=== PATIENT | female | born 1945 | race African-American/Black ===

== ENCOUNTER 2017-12-07 05:46 | Inpatient (IN) | payer MEDICARE, MEDICAID ==
--- NOTE | 2017-12-06 12:30 | Pre-op HX & Phy Repo 2 SIG ---
DATE OF ADMISSION: 12/07/2017 DATE OF SURGERY: 12/07/2017. PREOPERATIVE DIAGNOSIS: Retained lens material, left eye. BRIEF NOTE: This is the first retinal surgery admission for Ms. Xiao, who is a very nice 71-year-old lady with a long history of diabetic retinopathy and glaucoma. She underwent cataract surgery on November 29, complicated by loose zonules, which resulted in retention of lens fragments on that side. She was left aphakic. She is admitted for vitrectomy with removal of lens fragments as a primary procedure with potentially delayed insertion of a lens implant. PAST OCULAR HISTORY: Remarkable for proliferative diabetic retinopathy. She has undergone prior laser treatment and injections. She had significant glaucoma on the right eye in the past and had tube-shunt surgery there. There was a partial dislocation of the lens implant on the right, but not surgically significant at this point. MEDICAL HISTORY: Remarkable for arthritis, diabetes, hypertension, and kidney disease. SOCIAL HISTORY: She is a nonsmoker. She does not drink. ALLERGIES: She has no known allergies. CURRENT MEDICATIONS: Include Timolol twice daily, Lumigan twice daily as well as TobraDex and dorzolamide. She is systemically on gabapentin and Renvela. PHYSICAL EXAMINATION: Best vision at the time of admission was 20/300 in the right eye, counting fingers at 6 feet in the left with pressures of 19 and 20. The anterior segment on the right showed a tube-shunt at the 10 o'clock position. The intra-ocular lens was dislocated slightly inferiorly and nasally, but the optical axis was covered. The left anterior segment showed a cataract wound temporally. There was lens material, which appeared to be deep cortex in the inferior angle. Capsular remnants were also present. No implant was in place. Funduscopic examination of the right eye showed a 0.45 cup. There was old proliferative diabetic retinopathy with a mild vitreous hemorrhage down below. The left fundus showed active proliferative retinopathy with some laser. Two small fragments of the lens material were seen posteriorly. The retina was all attached. General physical examination will be done by Dr. Jean Baptiste. ASSESSMENT: Retained lens material, left eye with diabetic retinopathy. PLAN: The plan is to perform a pars plana vitrectomy with removal and possible fragmentation of retained lens material. Endolaser will be done as well as a planned Avastin injection. The risks and benefits of surgery gone over the patient with potential infection, hemorrhage, worsening of the glaucoma, and remote possibility of loss of the eye. She was advised that no lens will be inserted at this procedure. The patient understands and consents to the surgery, which will be performed on tomorrow morning. Ronni Felipe M.D. DR: TAMARA JOB#: [id number] CC:
[~2017-12-07] VITALS: Ht 162.6 cm; Wt 70.8 kg
[2017-12-07] VITALS (31 sets, daily range): BP systolic 109–145; BP diastolic 43–72
[~2017-12-07 05:46] MED LIST: ASPIRIN-LOW81 MG ORAL; BENICAR40 MG ORAL; CATAPRES0.3 MG ORAL; DOXAZOSIN MESYLA4 MG ORAL; FELODIPINE ER10 MG PO; NEPHROVITE1 TAB ORAL; RENVELA800 MG ORAL; VIT.D3 ORAL; VITAMIN D1000 UNI1 ORAL
[2017-12-07] MEDS ORDERED: Pred Forte 1% Opth Susp 1ml LEFT EYE ONE (06:00)
[2017-12-07] MEDS ORDERED: Avastin 10mg Inj IVITRE ONE (06:00)
[2017-12-07] MEDS ORDERED: EPINEPHrine 1mg/1ml Amp ONE (06:23)
[2017-12-07] MEDS ORDERED: Pred Forte 1% Opth Susp 1ml ONE (06:24)
[2017-12-07] MEDS ORDERED: Kenalog-10 5ml Inj ONE (06:24)
[2017-12-07] MEDS ORDERED: Kenalog-40 1ml Vial ONE (06:24)
[2017-12-07] MEDS ORDERED: Lidocaine 2% MPF 5ml Vial INJ ONE ×2 (06:24→06:26)
[2017-12-07] MEDS ORDERED: Bupivacaine 0.75% 30ml vial INJ ONE (06:25)
[2017-12-07] MEDS ORDERED: BSS 500ml btl ONE (06:25)
[2017-12-07] MEDS ORDERED: Povidone-Iodine 5% opth solution ONE (06:25)
[2017-12-07] MEDS ORDERED: BSS 15ml BTL ONE ×2 (06:25→08:57)
[2017-12-07] MEDS ORDERED: Dexamethasone 4mg/ml vial ONE (06:25)
[2017-12-07] MEDS ORDERED: Tetracaine 0.5% Opth 4ml Soln ONE (06:25)
[2017-12-07] MEDS ORDERED: Triamcinolone 40mg/ml PF Vial ONE (06:26)
[2017-12-07] MEDS: Cyclopentolate 1% Opth Sol 2ml LEFT EYE SCH ×3 (06:34→06:55)
[2017-12-07] MEDS: Flurbiprofen 0.03% Opth Sol 2.5ml LEFT EYE SCH ×3 (06:34→06:55)
[2017-12-07] MEDS: Phenylephrine 2.5% Op 2ml Soln LEFT EYE SCH ×3 (06:34→06:55)
[2017-12-07] MEDS: Vigamox Opth Soln 3ml LEFT EYE SCH ×3 (06:35→06:55)
[2017-12-07] MEDS ORDERED: Maxitrol Opth Oint 3.5gm ONE (06:43)
[2017-12-07] MEDS ORDERED: Sodium Hyaluronate 10 mg/ml 0.85ml ONE (06:44)
[2017-12-07] MEDS ORDERED: Propofol 200mg/20ml IV ONE (07:00)
[2017-12-07] MEDS ORDERED: fentaNYL 100 mcg/2 mL IV ONE (07:00)
[2017-12-07] MEDS ORDERED: Sterile Water Irrig 1000ml IRRIG ONE (07:00)
[2017-12-07] MEDS ORDERED: NS Irrig 1000ml ONE (07:00)
[2017-12-07] MEDS ORDERED: ePHEDrine 50mg/ml Inj ONE (07:00)
[2017-12-07] MEDS ORDERED: Lidocaine 1% MPF 10mg/ml 5ml ONE (07:00)
[2017-12-07] MEDS ORDERED: LR 1000ml ONE ×2 (07:00)
[2017-12-07] MEDS ORDERED: Esmolol 100mg/10ml Inj ONE (07:00)
[2017-12-07 07:08] LABS: ANION GAP 10 mmol/L (5-15); BASOPHILS % (AUTO) 1.2 % (0.0-2.0); BLOOD UREA NITROGEN 29 mg/dL (7-18); CALCIUM 9.2 MG/DL (8.5-10.1); CARBON DIOXIDE 28 MMOL/L (21-32); CHLORIDE 104 MMOL/L (98-107); CREATININE 6.3 MG/DL (0.55-1.30); HEMATOCRIT 39.7 % (37.0-47.0); HEMOGLOBIN 13.2 G/DL (12.0-16.0); LYMPHOCYTES % (AUTO) 35.5 % (20.0-45.0); MEAN CORPUSCULAR VOLUME 98 FL (80-99); MONOCYTES % (AUTO) 14.2 % (1.0-10.0); PLATELET COUNT 215 K/UL (150-450); POTASSIUM 4.3 MMOL/L (3.5-5.1); RED BLOOD COUNT 4.04 M/UL (4.20-5.40); RED CELL DISTRIBUTION WIDTH 12.5 % (11.6-14.8); SODIUM 142 MMOL/L (136-145); WHITE BLOOD COUNT 4.7 K/UL (4.8-10.8)
--- NOTE | 2017-12-07 07:19 | Anethesia Preoperative Eval ---
Anesthesia Pre-op PMH/ROS General Date of Evaluation: December 07, 2017 Time of Evaluation: 07:18 Anesthesiologist: lauryn ASA Score: ASA 3 Mallampati Score Class I : Soft palate, uvula, fauces, pillars visible Class II: Soft palate, uvula, fauces visible Class III: Soft palate, base of uvula visible Class IV: Only hard plate visible Mallampati Classification: Class II Surgeon: aguilar Diagnosis: retained lens material Surgical Procedure: vitrectomy Anesthesia History: none Family History: no anesthesia problems Allergies: Coded Allergies: No Known Allergies (Unverified , 03/07/13) Medications: see eMAR Past Medical History Cardiovascular: Reports: HTN, arrhythmia - hx; Denies: CAD, [place], valve dz, other Pulmonary: Denies: asthma, COPD, YUKO, other Gastrointestinal/Genitourinary: Reports: CRI, ESRD - dialysis yesterday - lbs wnl; Denies: GERD, other Neurologic/Psychiatric: Denies: dementia, CVA, depression/anxiety, TIA, other Endocrine: Reports: DM; Denies: hypothyroidism, steroids, other HEENT: Reports: cataract (L), cataract (R) Hematology/Immune: Reports: anemia Musculoskeletal/Integumentary: Denies: OA, RA, DJD, DDD, edema, other PSxH Narrative: cataract surgery in november 2017- retained lens material Anesthesia Pre-op Phys. Exam Physician Exam Last Vital Signs Date Time Temp Pulse Resp B/P (MAP) Pulse Ox O2 Delivery O2 Flow Rate FiO2 12/07/17 06:42 98.1 59 18 131/62 98 Room Air 98.1 Constitutional: NAD Neurologic: CN 2-12 intact Cardiovascular: RRR Respiratory: CTA Gastrointestinal: S/NT/ND Airway Exam Mallampati Classification 2 Mallampati Score: Class II ROM: limited Dentures: upper; no lower Anesthesia Pre-op A/P Labs Hematology Test 12/07/17 05:30 White Blood Count 4.7 K/UL (4.8-10.8) L Red Blood Count 4.04 M/UL (4.20-5.40) L Hemoglobin 13.2 G/DL (12.0-16.0) Hematocrit 39.7 % (37.0-47.0) Mean Corpuscular Volume 98 FL (80-99) Mean Corpuscular Hemoglobin 32.6 PG (27.0-31.0) H Mean Corpuscular Hemoglobin Concent 33.2 G/DL (32.0-36.0) Red Cell Distribution Width 12.5 % (11.6-14.8) Platelet Count 215 K/UL (150-450) Mean Platelet Volume 6.2 FL (6.5-10.1) L Neutrophils (%) (Auto) 46.0 % (45.0-75.0) Lymphocytes (%) (Auto) 35.5 % (20.0-45.0) Monocytes (%) (Auto) 14.2 % (1.0-10.0) H Eosinophils (%) (Auto) 3.0 % (0.0-3.0) Basophils (%) (Auto) 1.2 % (0.0-2.0) Chemistry Test 12/07/17 05:30 Sodium Level Pending Potassium Level Pending Chloride Level Pending Carbon Dioxide Level Pending Blood Urea Nitrogen Pending Creatinine Pending Estimat Glomerular Filtration Rate Pending Glucose Level Pending Calcium Level Pending Studies Pre-op Studies: EKG - bbb Risk Assessment & Plan Assessment: denies recent change in health; denies CP Plan: mac/General Status Change Before Surgery: No Pre-Antibiotics Drug: none Brooklynn Lim CRNA December 07, 2017 07:19
--- NOTE | 2017-12-07 07:25 | Pre-Procedure Note/Attestation ---
Pre-Procedure Note/Attestation Complete Prior to Procedure Planned Procedure: left Procedure Narrative: PPV, removal of retained lens material, endolaser, Avastin injection Left eye Indications for Procedure Pre-Operative Diagnosis: Retained lens material Left eye Attestation I attest that I discussed the nature of the procedure; its benefits; risks and complications; and alternatives (and the risks and benefits of such alternatives ), prior to the procedure, with the patient (or the patient's legal termite control representative). I attest that, if there was a reasonable possibility of needing a blood transfusion, the patient (or the patient's legal termite control representative) was given the [facility] standardized written summary, pursuant to the [place] Blood Safety Act ([place] Health and Safety Code # 1645, as amended). I attest that I re-evaluated the patient just prior to the surgery and that there has been no change in the patient's H&P, except as documented below: TRINY PRATER December 07, 2017 07:25
[2017-12-07] MEDS ORDERED: Pilocarpine 4% Opth 15ml Soln ONE (08:11)
[2017-12-07] MEDS ORDERED: Carbachol 0.01% Op Soln 1.5ml vial ONE (08:12)
[2017-12-07 10:20] LABS: ALANINE AMINOTRANSFERASE 19 U/L (12-78); ALBUMIN 3.3 G/DL (3.4-5.0); ALBUMIN/GLOBULIN RATIO 0.8 (1.0-2.7); ALKALINE PHOSPHATASE 103 U/L (46-116); ANION GAP 11 mmol/L (5-15); ASPARTATE AMINO TRANSFERASE 24 U/L (15-37); BILIRUBIN,TOTAL 0.5 MG/DL (0.2-1.0); BLOOD UREA NITROGEN 31 mg/dL (7-18); CALCIUM 9.4 MG/DL (8.5-10.1); CARBON DIOXIDE 27 MMOL/L (21-32); CHLORIDE 105 MMOL/L (98-107); CKMB 1.3 NG/ML (0.0-3.6); CREATININE 6.5 MG/DL (0.55-1.30); POTASSIUM 4.6 MMOL/L (3.5-5.1); SODIUM 143 MMOL/L (136-145)
--- NOTE | 2017-12-07 13:48 | Cardiac Electrophysiology PN ---
Subjective Subjective Pt seen in recovery. Consult dictated. Elevated Troponin. Wide complex tachy.Abdominal Pacer. [id number] Objective Last 24 Hour Vital Signs Date Time Temp Pulse Resp B/P (MAP) Pulse Ox O2 Delivery O2 Flow Rate FiO2 12/07/17 13:30 65 18 129/66 100 Nasal Cannula 3.0 12/07/17 13:15 62 16 115/62 100 Nasal Cannula 3.0 12/07/17 13:00 60 15 121/55 100 Nasal Cannula 3.0 12/07/17 12:45 61 14 117/54 100 Nasal Cannula 3.0 12/07/17 12:30 62 16 118/56 100 Nasal Cannula 3.0 12/07/17 12:15 61 15 119/56 100 Nasal Cannula 3.0 12/07/17 12:00 63 16 128/56 100 Nasal Cannula 3.0 12/07/17 11:45 63 14 124/63 100 Nasal Cannula 3.0 12/07/17 11:30 62 15 114/61 100 Nasal Cannula 3.0 12/07/17 11:15 61 17 123/55 100 Nasal Cannula 3.0 12/07/17 11:00 60 16 129/60 100 Nasal Cannula 3.0 12/07/17 10:45 60 15 127/63 100 Nasal Cannula 3.0 12/07/17 10:30 60 18 124/57 100 Nasal Cannula 3.0 12/07/17 10:15 65 15 123/67 100 Nasal Cannula 3.0 12/07/17 10:00 65 13 135/62 100 Nasal Cannula 3.0 12/07/17 09:45 64 15 144/70 100 Nasal Cannula 3.0 12/07/17 09:30 75 18 125/69 100 Nasal Cannula 3.0 12/07/17 09:20 66 15 145/72 100 Nasal Cannula 3.0 12/07/17 09:10 65 13 134/65 100 Nasal Cannula 3.0 12/07/17 09:05 71 14 131/62 100 Nasal Cannula 3.0 12/07/17 09:00 67 15 135/63 100 Simple Mask 6.0 12/07/17 08:54 98.0 63 13 131/62 100 Simple Mask 6.0 98.0 12/07/17 06:42 98.1 59 18 131/62 98 Room Air 98.1 Laboratory Tests Test 12/07/17 05:30 12/07/17 09:35 White Blood Count 4.7 K/UL (4.8-10.8) L Red Blood Count 4.04 M/UL (4.20-5.40) L Hemoglobin 13.2 G/DL (12.0-16.0) Hematocrit 39.7 % (37.0-47.0) Mean Corpuscular Volume 98 FL (80-99) Mean Corpuscular Hemoglobin 32.6 PG (27.0-31.0) H Mean Corpuscular Hemoglobin Concent 33.2 G/DL (32.0-36.0) Red Cell Distribution Width 12.5 % (11.6-14.8) Platelet Count 215 K/UL (150-450) Mean Platelet Volume 6.2 FL (6.5-10.1) L Neutrophils (%) (Auto) 46.0 % (45.0-75.0) Lymphocytes (%) (Auto) 35.5 % (20.0-45.0) Monocytes (%) (Auto) 14.2 % (1.0-10.0) H Eosinophils (%) (Auto) 3.0 % (0.0-3.0) Basophils (%) (Auto) 1.2 % (0.0-2.0) Sodium Level 142 MMOL/L (136-145) 143 MMOL/L (136-145) Potassium Level 4.3 MMOL/L (3.5-5.1) 4.6 MMOL/L (3.5-5.1) Chloride Level 104 MMOL/L (98-107) 105 MMOL/L (98-107) Carbon Dioxide Level 28 MMOL/L (21-32) 27 MMOL/L (21-32) Anion Gap 10 mmol/L (5-15) 11 mmol/L (5-15) Blood Urea Nitrogen 29 mg/dL (7-18) H 31 mg/dL (7-18) H Creatinine 6.3 MG/DL (0.55-1.30) H 6.5 MG/DL (0.55-1.30) H Estimat Glomerular Filtration Rate mL/min (>60) mL/min (>60) Glucose Level 110 MG/DL (74-106) H 103 MG/DL (74-106) Calcium Level 9.2 MG/DL (8.5-10.1) 9.4 MG/DL (8.5-10.1) Magnesium Level 1.9 MG/DL (1.8-2.4) Total Bilirubin 0.5 MG/DL (0.2-1.0) Aspartate Amino Transf (AST/SGOT) 24 U/L (15-37) Alanine Aminotransferase (ALT/SGPT) 19 U/L (12-78) Alkaline Phosphatase 103 U/L (46-116) Creatine Kinase MB 1.3 NG/ML (0.0-3.6) Troponin I 0.148 ng/mL (0.000-0.056) Total Protein 7.5 G/DL (6.4-8.2) Albumin 3.3 G/DL (3.4-5.0) L Globulin 4.2 g/dL Albumin/Globulin Ratio 0.8 (1.0-2.7) L Shree Castro MD December 07, 2017 13:48
--- NOTE | 2017-12-07 14:17 | Diagnostic Imaging Report ---
Indication: Dyspnea Comparison: None A single view chest radiograph was obtained. Findings: Pacemaker wires are noted entering the heart from the IVC. One of the leads terminates in the right atrium the other crosses midline into the right ventricle. There is a stent in the left subclavian vein. Bones are osteopenic. The heart is enlarged. The lungs are clear IMPRESSION: No acute disease.
--- NOTE | 2017-12-07 14:27 | Immediate Post-Op Evaluation ---
Immediate Post-Op Evalulation Immediate Post-Op Evalulation Procedure: left eye vitrectomy; removal of fragments Date of Evaluation: December 07, 2017 Time of Evaluation: 08:56 IV Fluids: 500 Blood Pressure Systolic: 131 Blood Pressure Diastolic: 62 Pulse Rate: 60 Respiratory Rate: 14 O2 Sat by Pulse Oximetry: 100 Temperature (Fahrenheit): 98.1 Pain Score (1-10): 0 Nausea: No Vomiting: No Complications Pt had one bout to PSVT - 100s -110 - intraop for approximately [address] Felipe made aware; agreed to stop procedure and cx case with next episode of dyrrthymias. Towards the end of case, pt had another run of PSVT 110-120,BP 130s /80 SPo 100 on 100% oxygen-intubated under general. Case cx. Pt returned to baseline neurostatus. Labs drawn, 12 lead ECG done and consulted cardiology. Otherwise pt is alert and awake. Patient Status: awake, reacts, patent Hydration Status: adequate Drug: none Brooklynn Lim CRNA December 07, 2017 14:27
--- NOTE | 2017-12-07 14:49 | 48 Hour Post Anesthesia Eval ---
Post Anesthesia Evaluation Procedure: left eye vitrectomy; removal of fragments Date of Evaluation: December 07, 2017 Time of Evaluation: 14:48 Blood Pressure Systolic: 122 0: 66 Pulse Rate: 74 Respiratory Rate: 14 O2 Sat by Pulse Oximetry: 100 Airway: patent Nausea: No Vomiting: No Hydration Status: adequate Cardiopulmonary Status: Dr. Brooks was consulted. Mental Status/LOC: other - pt is admitted for further cardiac workup and abdominal pacemaker interrogation Follow-up Care/Observations: cardiology consult; pacermaker interrogation Post-Anesthesia Complications: none Follow-up care needed: N/A Brooklynn Lim CRNA December 07, 2017 14:49
--- NOTE | 2017-12-07 15:13 | History and Physical ---
History of Present Illness General Date patient seen: December 07, 2017 Reason for Hospitalization: SVT Present Illness HPI Patient is a 71 y/o female with a PMH of HTN, ESRD on HD (MWF), and abdominal pacer ([employer] pacemaker) who presented for elective left eye surgery for retained lens. Patient states that she underwent cataract surgery on November 29, 2017, which was c/b loose zonules. This resulted in retention of lens fragments on that side. She was therefore admitted for vitrectomy with removal of lens fragments as a primary procedure with potentially delayed insertion of a lens implant. While in OR, patient had several beats of supraventricular tachycardia , but case was finished. Patient states that the abdominal pacer was placed due to bradycardia and was in abdomen because she had a stent placed in the LUE due to arterial occlusion. Denies chest pain, sob, n/v, abdominal pain, f/c, d/c. PMH: HTN, ESRD on HD, abdominal pacemaker PSxH: right third phalanx amputation, s/p right AVF, s/p left AVF now closed due to previous infection, s/p left RUE angioplasty with stent due to arterial occlusion Social Hx: Denies tobacco/alcohol/illicit drug use Allergies: Coded Allergies: No Known Allergies (Unverified , 03/07/13) Medication History Scheduled Aspirin (Aspirin EC), 81 MG ORAL DAILY, (Reported) Cholecalciferol (Vitamin D3)* (Vitamin D*), 1,000 UNIT ORAL DAILY, (Reported) Sevelamer Carbonate (Renvela), 800 MG ORAL THREE TIMES A DAY, (Reported) Discontinued Medications Clonidine Hcl* (Catapres*), 0.3 MG ORAL DAILY, (Reported) Discontinued Reason: Pt stopped taking med Doxazosin Mesylate* (Doxazosin Mesylate*), 8 MG ORAL DAILY, (Reported) Discontinued Reason: Pt stopped taking med Felodipine (Felodipine Er), 10 MG PO DAILY, (Reported) Discontinued Reason: Pt stopped taking med Olmesartan Medoxomil (Benicar), 40 MG ORAL DAILY, (Reported) Discontinued Reason: Pt stopped taking med Vitamin B Cmplx/Vit C/Folic AC (Nephro-Reid Tablet), 1 TAB ORAL DAILY, (Reported ) Discontinued Reason: Pt stopped taking med Patient History Healthcare decision maker N Resuscitation status Advanced Directive on File Review of Systems All Other Systems: negative except mentioned in HPI Physical Exam General Appearance: no apparent distress, alert HEENT: normocephalic, atraumatic, other - left eye wrapped Neck: non-tender, normal alignment, supple Respiratory/Chest: chest wall non-tender, lungs clear, normal breath sounds Cardiovascular/Chest: normal peripheral pulses, irregularly irregular Abdomen: normal bowel sounds, non tender, soft, other - abdominal pacemaker present in LUQ Extremities: normal range of motion, non-tender Skin Exam: normal pigmentation, warm/dry, other - right AVF with bruit 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: 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 II-XII grossly normal, no motor/sensory deficits, alert, oriented x 3 Last 24 Hour Vital Signs Date Time Temp Pulse Resp B/P (MAP) Pulse Ox O2 Delivery O2 Flow Rate FiO2 12/07/17 14:58 99.1 65 14 129/58 100 Nasal Cannula 2.0 99.1 12/07/17 14:50 74 14 100 12/07/17 14:45 98.0 60 16 109/43 100 Nasal Cannula 3.0 98.0 12/07/17 14:30 62 15 112/62 100 Nasal Cannula 3.0 12/07/17 14:27 208.6 60 14 100 12/07/17 14:15 63 14 118/58 100 Nasal Cannula 3.0 12/07/17 14:00 61 16 124/64 100 Nasal Cannula 3.0 12/07/17 13:45 62 15 123/62 100 Nasal Cannula 3.0 12/07/17 13:30 65 18 129/66 100 Nasal Cannula 3.0 12/07/17 13:15 62 16 115/62 100 Nasal Cannula 3.0 12/07/17 13:00 60 15 121/55 100 Nasal Cannula 3.0 12/07/17 12:45 61 14 117/54 100 Nasal Cannula 3.0 12/07/17 12:30 62 16 118/56 100 Nasal Cannula 3.0 12/07/17 12:15 61 15 119/56 100 Nasal Cannula 3.0 12/07/17 12:00 63 16 128/56 100 Nasal Cannula 3.0 12/07/17 11:45 63 14 124/63 100 Nasal Cannula 3.0 12/07/17 11:30 62 15 114/61 100 Nasal Cannula 3.0 5/30/18 11:15 61 17 123/55 100 Nasal Cannula 3.0 12/07/17 11:00 60 16 129/60 100 Nasal Cannula 3.0 12/07/17 10:45 60 15 127/63 100 Nasal Cannula 3.0 12/07/17 10:30 60 18 124/57 100 Nasal Cannula 3.0 12/07/17 10:15 65 15 123/67 100 Nasal Cannula 3.0 12/07/17 10:00 65 13 135/62 100 Nasal Cannula 3.0 12/07/17 09:45 64 15 144/70 100 Nasal Cannula 3.0 12/07/17 09:30 75 18 125/69 100 Nasal Cannula 3.0 12/07/17 09:20 66 15 145/72 100 Nasal Cannula 3.0 12/07/17 09:10 65 13 134/65 100 Nasal Cannula 3.0 12/07/17 09:05 71 14 131/62 100 Nasal Cannula 3.0 12/07/17 09:00 67 15 135/63 100 Simple Mask 6.0 12/07/17 08:54 98.0 63 13 131/62 100 Simple Mask 6.0 98.0 12/07/17 06:42 98.1 59 18 131/62 98 Room Air 98.1 Laboratory Tests Test 12/07/17 05:30 12/07/17 09:35 White Blood Count 4.7 K/UL (4.8-10.8) L Red Blood Count 4.04 M/UL (4.20-5.40) L Hemoglobin 13.2 G/DL (12.0-16.0) Hematocrit 39.7 % (37.0-47.0) Mean Corpuscular Volume 98 FL (80-99) Mean Corpuscular Hemoglobin 32.6 PG (27.0-31.0) H Mean Corpuscular Hemoglobin Concent 33.2 G/DL (32.0-36.0) Red Cell Distribution Width 12.5 % (11.6-14.8) Platelet Count 215 K/UL (150-450) Mean Platelet Volume 6.2 FL (6.5-10.1) L Neutrophils (%) (Auto) 46.0 % (45.0-75.0) Lymphocytes (%) (Auto) 35.5 % (20.0-45.0) Monocytes (%) (Auto) 14.2 % (1.0-10.0) H Eosinophils (%) (Auto) 3.0 % (0.0-3.0) Basophils (%) (Auto) 1.2 % (0.0-2.0) Sodium Level 142 MMOL/L (136-145) 143 MMOL/L (136-145) Potassium Level 4.3 MMOL/L (3.5-5.1) 4.6 MMOL/L (3.5-5.1) Chloride Level 104 MMOL/L (98-107) 105 MMOL/L (98-107) Carbon Dioxide Level 28 MMOL/L (21-32) 27 MMOL/L (21-32) Anion Gap 10 mmol/L (5-15) 11 mmol/L (5-15) Blood Urea Nitrogen 29 mg/dL (7-18) H 31 mg/dL (7-18) H Creatinine 6.3 MG/DL (0.55-1.30) H 6.5 MG/DL (0.55-1.30) H Estimat Glomerular Filtration Rate mL/min (>60) mL/min (>60) Glucose Level 110 MG/DL (74-106) H 103 MG/DL (74-106) Calcium Level 9.2 MG/DL (8.5-10.1) 9.4 MG/DL (8.5-10.1) Magnesium Level 1.9 MG/DL (1.8-2.4) Total Bilirubin 0.5 MG/DL (0.2-1.0) Aspartate Amino Transf (AST/SGOT) 24 U/L (15-37) Alanine Aminotransferase (ALT/SGPT) 19 U/L (12-78) Alkaline Phosphatase 103 U/L (46-116) Creatine Kinase MB 1.3 NG/ML (0.0-3.6) Troponin I 0.148 ng/mL (0.000-0.056) Total Protein 7.5 G/DL (6.4-8.2) Albumin 3.3 G/DL (3.4-5.0) L Globulin 4.2 g/dL Albumin/Globulin Ratio 0.8 (1.0-2.7) L Height (Feet): 5 Height (Inches): 6.00 Weight (Pounds): 140 Medications Current Medications Medications (Trade) Dose Ordered Sig/Camron Route PRN Reason Start Time Stop Time Status Last Admin Dose Admin Acetaminophen (Tylenol) 650 mg Q4H PRN ORAL Mild Pain (Pain Scale 1-3) 12/07/17 07:30 01/06/18 07:29 Ibuprofen (Motrin) 600 mg Q4H PRN ORAL For Pain 12/07/17 07:30 01/06/18 07:29 Metoprolol Tartrate (Lopressor) 25 mg Q12HR ORAL 12/07/17 21:00 01/06/18 20:59 Ondansetron HCl (Zofran) 4 mg Q4H PRN IVP Nausea & Vomiting 12/07/17 07:30 01/06/18 07:29 Assessment/Plan Problem List: (1) ESRD (end stage renal disease) ICD Codes: N18.6 - End stage renal disease SNOMED: 10172846 (2) Hemodialysis patient ICD Codes: Z99.2 - Dependence on renal dialysis SNOMED: 479446426 (3) Supraventricular tachycardia ICD Codes: I47.1 - Supraventricular tachycardia SNOMED: 3584418 (4) Elevated troponin ICD Codes: R74.8 - Abnormal levels of other serum enzymes SNOMED: 458166942, 823121851, 026274794 (5) H/O vitrectomy ICD Codes: Z98.890 - Other specified postprocedural states SNOMED: 353050302 (6) Foreign body, intraocular, left eye, retained or old ICD Codes: H44.702 - Unspecified retained (old) intraocular foreign body, nonmagnetic, left eye; Z18.9 - Retained foreign body fragments, unspecified material SNOMED: 64371018 (7) HTN (hypertension) ICD Codes: I10 - Essential (primary) hypertension SNOMED: 38603034 Status: stable, progressing Assessment/Plan - Admit to [facility] - Cardiology (Dr. Cantu) and nephrology (Dr. Arnett) consulted. Opthamology (Dr. Felipe) following - retained lens to left eye s/p vitrectomy on 12/07/17 c/b SVTs on monitor - continue tele monitor - EKG showing SVT - trend trops x 3 - SJ pacer in abdomen -- cards to interrogate pacemaker - HD per nephro - monitor CBC, BMP, Mg, Phos - check lipid panel and A1c - [facility]U - continue home meds. Hold BP meds for SBP < 90 - pain control and supportive care DVT ppx: HSQ Full code Disposition: Once the patient is medically stable, I anticipate the patient to be discharged to home with home health I spent a total of 71 minutes on this patient's case with greater than 50% spent on care and coordination of the patient. Case was d/w patient, caregiver, nursing staff, CM/SW, and vending technician regarding plan of care. Based on the above findings, I anticipate the patient to be admitted for 2-3 days for further cardiac monitoring and pain control. Angelika Miller NP December 07, 2017 15:13
--- NOTE | 2017-12-07 15:19 | Cardiology Report ---
APPROVED REPORT EXAM: Two-dimensional and M-mode echocardiogram with Doppler and color Doppler. M-Mode DIMENSIONS IVSd1.9 (0.7-1.1cm)Left Atrium (MM)3.2 (1.6-4.0cm) LVDd4.5 (3.5-5.6cm)Aortic Root3.5 (2.0-3.7cm) PWd1.3 (0.7-1.1cm)Aortic Cusp Exc.2.2 (1.5-2.0cm) LVDs2.8 (2.5-4.0cm) PWs1.7 cm Normal left ventricular chamber size, systolic function and wall motion. Left ventricular ejection fraction estimated to be 65 %. Severe left ventricular hypertrophy. No evidence of pericardial effusion. Left and right atrial sizes at upper limits of normal. Mild right ventricular enlargement. Focal aortic valve sclerosis with adequate cusp excursion. Thickened mitral valve leaflets with normal excursion. Mitral annulus and aortic root calcification. Pulmonic valve not well visualized. Normal tricuspid valve structure. IVC at normal size with physiologic collapse. Pacemaker wire present in the right side chambers. A color flow and spectral Doppler study was performed and revealed: Trace aortic regurgitation. Moderate mitral regurgitation. Mitral diastolic velocities suggest reduced left ventricular relaxation c/w mild LV diastolic dysfunction (Grade I ). Mild tricuspid regurgitation. Tricuspid systolic velocities suggests peak right ventricular systolic pressure of 43 mmHg, consistent with mild to moderate pulmonary hypertension. Trace pulmonic regurgitation present.
--- NOTE | 2017-12-07 16:07 | Diagnostic Imaging Report ---
Indication: Abdominal pain Comparison: None Single view of the abdomen obtained Findings: Bowel gas pattern is nonspecific. No mass, ectopic calcifications, or abnormal gas collections are identified. The bones are unremarkable. There is a pacemaker present projected over the left hemipelvis. The wires project into the IVC to the heart. Impression: No acute findings
[2017-12-07] MEDS: NovoLOG Insulin Flexpen SUBQ SCH ×2 (16:32→21:02)
--- NOTE | 2017-12-07 16:45 | Operative Note - Dictated ---
DATE OF OPERATION: 12/07/2017 PREOPERATIVE DIAGNOSIS: Retained lens material with vitreous hemorrhage and diabetic retinopathy, left eye. POSTOPERATIVE DIAGNOSIS: Retained lens material with vitreous hemorrhage and diabetic retinopathy, left eye. PROCEDURES PERFORMED: 1. Pars plana vitrectomy. 2. Removal of retained lens material. 3. Re-enforcement of cataract wound. 4. Peripheral iridotomy. 5. Endolaser. 6. Avastin injection, left eye. SURGEON: Ronni Felipe M.D. SOFTWARE ENGINEERING SUPERVISOR: . ANESTHESIA: General endotracheal. JUSTIFICATION FOR SURGERY: This 71-year-old lady with a history of diabetes, vitreous hemorrhage, and a very dense cataract underwent cataract surgery 1 week ago during which there was rupture of the capsule and loss of nuclear fragments. She is admitted for vitrectomy and removal of retained lens material. BRIEF NOTE: The patient was brought to the operative room, placed on operating room table in supine position. After a time out was agreed upon by the staff, general endotracheal anesthesia was induced. A retrobulbar block of 2 mL of medication and Van Lint were given to eliminate postoperative pain and the need for intraoperative anesthesia. She was then prepped and draped in normal manner. A lid speculum inserted into the left eye. Using a 23-gauge trocar system, cannulas were placed in all except infranasal quadrant. Infusion secured inferotemporally. Vitrectomy was begun posterior to the iris plane. The central capsule was opened and the lens material and the anterior chamber angle was gently blown out with Miochol. The pupil was reformed to a more circular configuration and the cataract wound reinforced with a single 10-0 nylon suture at the 3 o'clock position. Using the wide-angle viewing system, the vitrectomy was continued further. Fragments of lens were gently suctioned off the surface of the retina and removed. Scleral depression was done. No peripheral breaks, tears, or detachments were seen, but peripheral retinal hemorrhages and nonfusion possible surface neovascularization was noted. The endolaser was brought to the eye and a power of 0.3 quan, duration 0.2 seconds, extensive laser was placed in the far periphery from anterior to the equator to near the pars plana. No problems were encountered. The posterior lipid or blood was not seen. At this juncture, superior cannulas were removed and these were noted to be self-sealing. Through the infusion cannula, Avastin 1.25 mg was injected. This cannula was removed and this sclerotomy closed with 8-0 Vicryl. Subconjunctival Decadron and gentamicin were then injected inferiorly and topical pilocarpine 4%, Vigamox, prednisolone and Maxitrol ointment were instilled. The eye was patched and shielded and the patient was taken to recovery in excellent condition. It should be noted that during the procedure, anesthesiologists noted several runs of supraventricular tachycardia that responded rapidly. She will be evaluated by leadership recruiter in recovery. Ronni Felipe M.D. DR: RYAN JOB#: [id number] CC:
[2017-12-07] MEDS: Metoprolol 25mg tab ORAL SCH ×2 (21:00→21:49)
[2017-12-07] MEDS: Heparin 5000 units/ml inj SUBQ SCH (21:01)
[2017-12-08] VITALS: BP 116/58
--- NOTE | 2017-12-08 01:30 | Consultation ---
DATE OF CONSULTATION: 12/07/2017 CARDIAC ELECTROPHYSIOLOGY CONSULTATION CONSULTING PHYSICIAN: Shree Castro M.D. REASON FOR CONSULTATION: Ventricular tachycardia. HISTORY OF PRESENT ILLNESS: The patient is a 71-year-old lady with history of hypertension and diabetes and history of end-stage renal disease, on hemodialysis as well as history of pacemaker implantation in her abdomen about 4 months ago due to occlusion of bilateral subclavian veins. The patient underwent cataract surgery on 11/29/2017 and was complicated for loose zonules, which resulted in retention of lens fragments on that side. The patient underwent vitrectomy and removal of lens fragments as a primary procedure. However, during surgery, the patient had a run of wide complex tachycardia with morphology completely different underlying sinus or paced rhythm. Cardiac electrophysiology consultation was obtained for further evaluation. At the time of my evaluation, the patient is in the recovery room. Denies any chest pain or shortness of breath. PAST MEDICAL HISTORY: As mentioned above. MEDICATIONS: Per reconciliation. FAMILY HISTORY: Noncontributory. SOCIAL HISTORY: She does not smoke or drink alcohol. REVIEW OF SYSTEMS: Review of systems was negative other than what was mentioned in the history of present illness. PHYSICAL EXAMINATION: VITAL SIGNS: Blood pressure of 110/66, pulse 65, respirations 18, and she is afebrile. HEAD, EYES, AND NECK: No JVD. She is status post left eye surgery. LUNGS: Clear. CARDIOVASCULAR: Regular S1 and S2 with no gallop. ABDOMEN: Soft. She has a pacemaker right next to her [facility]. EXTREMITIES: There is no pitting edema. She has an amputation of right index finger. LABORATORY AND DIAGNOSTIC DATA: Her labs show white count of 4.7, hemoglobin 13.4, hematocrit 39.7, and platelet count 215. Sodium 142, potassium 4.6, BUN of 31, creatinine 6.5, and glucose of 103. Troponin is 0.148. ASSESSMENT AND PLAN: 1. Nonsustained ventricular tachycardia and elevated troponin at 0.148. We will completely rule out DE protocol. The patient does not have any chest pain or shortness of breath at this time. Elevated troponin could be due to the patient's renal failure. In the meantime, we put the patient on beta-noel and statin after further troponins are available. We will get an echocardiogram for further evaluation as well. 2. Status post [employer] Magdy pacemaker implantation four months ago at [facility] in her abdomen with lack of access in subclavian area. We will interrogate the pacemaker for further evaluation. We will also observe if the patient has ventricular tachycardia or not. We will also order a stat chest x-ray. 3. Status post left eye surgery. 4. Diabetes. 5. End-stage renal disease, on hemodialysis. It is of note that the patient's echocardiogram showed ejection fraction 65% with severe left ventricular hypertrophy. Her EKG also showed atrially paced rhythm with right bundle-branch block and left anterior fascicular block. The patient also has intermittent ventricular pacing on the rhythm strip. Thank you very much for allowing me to participate in the care of this patient. Please do not hesitate to contact me for any questions regarding my evaluation. Shree Castro M.D. DR: KOMAL JOB#: [id number] CC:
--- NOTE | 2017-12-08 02:15 | Consultation ---
DATE OF CONSULTATION: 12/07/2017 DATE OF ADMISSION: 12/07/2017 CONSULTING PHYSICIAN: Aristeo Echavarria M.D. REFERRING PHYSICIAN: Shree Castro M.D., Cardiology. REASON FOR CONSULTATION: 1. End-stage renal disease, on hemodialysis. 2. Hypertension. 3. Anemia of chronic kidney disease. HISTORY OF PRESENT ILLNESS: The patient is a pleasant 71-year-old female, who undergoes hemodialysis Tuesday, Tuesday, and Tuesday in [place], [place]. The patient recently had an elective eye surgery for retained lens. She was admitted on this occasion for management of SVT. She also has a [employer] Magdy's pacemaker. She is resting comfortably. During her primary procedure, which was potentially delayed insertion of the lens implant in the OR, the patient had several beats of supraventricular tachycardia. She is currently feeling better. Denies any current chest pain, palpitations, or shortness of breath. PAST MEDICAL HISTORY: 1. End-stage renal disease, on hemodialysis Tuesday, Tuesday, and Tuesday. 2. Hypertension. 3. Pacemaker. 4. Anemia of chronic kidney disease. 5. Secondary hyperparathyroidism. PAST SURGICAL HISTORY: 1. Right upper extremity AV fistula. 2. Right third phalanx amputation. 3. History of left AV fistula, which is now nonfunctional due to previous infection. 4. Status post right upper extremity angioplasty with stent. SOCIAL HISTORY: Denies any current tobacco, alcohol, or illicit drug use. ALLERGIES: No known drug allergies. CURRENT MEDICATIONS: Reviewed on medicine reconciliation list. REVIEW OF SYSTEMS: NEUROLOGIC: The patient denies headache, change in vision, syncope, or presyncopal episode. CARDIOVASCULAR: The patient has no chest pain. She was having palpitations. PULMONARY: No difficulty breathing. No cough or sputum. GASTROINTESTINAL/GENITOURINARY: No changes in urinary or bowel habits. No nausea, vomiting, or diarrhea. ENDOCRINOLOGY: No night sweats, fevers, or chills. LABORATORY AND DIAGNOSTIC DATA: Labs dated 12/07/2017, white cell count 4.7, hemoglobin 13.2, and platelet count 215,00. Sodium 143, potassium 4.6, BUN 31, creatinine 6.5, bicarbonate 27, calcium 9.4. PHYSICAL EXAMINATION: VITAL SIGNS: Blood pressure 129/58, pulse oximetry 100% on 2 L nasal cannula, pulse 65, and temperature 99.1 degrees. GENERAL: The patient is awake, alert, not otherwise in distress. HEENT: Extraocular muscles intact. No lymphadenopathy noted. CARDIOVASCULAR: S1 and S2. No rubs or gallops. PULMONARY: Clear to auscultation bilaterally. No rales, rhonchi, or wheezes. ABDOMEN: Nondistended and nontender. EXTREMITIES: No edema noted. ASSESSMENT AND PLAN: 1. End-stage renal disease, on hemodialysis. The patient underwent hemodialysis on Tuesday and Tuesday. At this time, the patient has declined hemodialysis tomorrow unless medically necessary for uremia or hyperkalemia. She would like to then continue back on her schedule Tuesday, Tuesday, and Tuesday. 2. Hypertension. Blood pressure stable. We will adjust medications as deemed appropriate. 3. Anemia of chronic kidney disease. Last hemoglobin 13.2. No need for EPO. 4. Secondary hyperparathyroidism. PTH and phosphorus levels to be continued to be monitored as an outpatient level. 5. Supraventricular tachycardia. Defer management to Cardiology. Let me take this opportunity to thank Dr. Castro. I will continue to follow this patient on a regular basis until time of discharge. Aristeo Echavarria MD DR: DENIS JOB#: [id number] CC: LILI
[2017-12-08 04:00] VITALS: BP 104/66
[2017-12-08 04:03] LABS: HEMATOCRIT 38.1 % (37.0-47.0); HEMOGLOBIN 12.5 G/DL (12.0-16.0); LYMPHOCYTES % (AUTO) 35.5 % (20.0-45.0); MEAN CORPUSCULAR VOLUME 98 FL (80-99); MONOCYTES % (AUTO) 10.4 % (1.0-10.0); NEUTROPHILS % (AUTO) 50.2 % (45.0-75.0); PLATELET COUNT 211 K/UL (150-450); RED BLOOD COUNT 3.87 M/UL (4.20-5.40); RED CELL DISTRIBUTION WIDTH 12.4 % (11.6-14.8); WHITE BLOOD COUNT 5.1 K/UL (4.8-10.8)
[2017-12-08 04:10] LABS: ALANINE AMINOTRANSFERASE 15 U/L (12-78); ALBUMIN 2.8 G/DL (3.4-5.0); ALBUMIN/GLOBULIN RATIO 0.7 (1.0-2.7); ALKALINE PHOSPHATASE 89 U/L (46-116); ANION GAP 9 mmol/L (5-15); ASPARTATE AMINO TRANSFERASE 24 U/L (15-37); BILIRUBIN,TOTAL 0.4 MG/DL (0.2-1.0); BLOOD UREA NITROGEN 50 mg/dL (7-18); CALCIUM 8.7 MG/DL (8.5-10.1); CARBON DIOXIDE 27 MMOL/L (21-32); CHLORIDE 104 MMOL/L (98-107); POTASSIUM 4.5 MMOL/L (3.5-5.1); SODIUM 140 MMOL/L (136-145)
[2017-12-08 04:14] LABS: PHOSPHORUS 4.5 MG/DL (2.5-4.9)
[2017-12-08 04:16] LABS: CHOLESTEROL 182 MG/DL (< 200); HDL CHOLESTEROL 84 MG/DL (40-60); TRIGLYCERIDES 58 MG/DL (30-150)
[2017-12-08] MEDS: NovoLOG Insulin Flexpen SUBQ SCH ×3 (05:44→16:30)
[2017-12-08 08:00] VITALS: BP 110/62
--- NOTE | 2017-12-08 08:35 | Nephrology Progress Note ---
Assessment/Plan Assessment/Plan 1. ESRD- patient MWF, patient declined HD today. Labs stable - if patient here in am will place patient back on MWF schedule 2. SVT- mgmt per cardiology. PPM interogated 3. HTN- stable, adjust medications as needed 4. Anemia of CKD- EPO if Hgb <10 Subjective Date patient seen: December 08, 2017 Time patient seen: 08:30 ROS Limited/Unobtainable: No Allergies: Coded Allergies: No Known Allergies (Unverified , 03/07/13) All Systems: reviewed and negative except above Subjective Patient eating bkfst and in no distress Objective Last 24 Hour Vital Signs Date Time Temp Pulse Resp B/P (MAP) Pulse Ox O2 Delivery O2 Flow Rate FiO2 12/08/17 04:00 97.7 62 18 104/66 99 Room Air 97.7 12/08/17 04:00 60 12/08/17 00:00 97.8 62 20 116/58 99 Room Air 97.8 12/07/17 23:58 60 12/07/17 21:49 75 121/61 12/07/17 20:00 97.7 58 20 121/61 99 Room Air 97.7 12/07/17 19:23 68 12/07/17 16:33 78 12/07/17 16:00 98.4 62 16 116/60 100 Room Air 98.4 12/07/17 14:58 99.1 65 14 129/58 100 Nasal Cannula 2.0 99.1 12/07/17 14:50 74 14 100 12/07/17 14:45 98.0 60 16 109/43 100 Nasal Cannula 3.0 98.0 12/07/17 14:30 62 15 112/62 100 Nasal Cannula 3.0 12/07/17 14:27 208.6 60 14 100 12/07/17 14:15 63 14 118/58 100 Nasal Cannula 3.0 12/07/17 14:00 61 16 124/64 100 Nasal Cannula 3.0 12/07/17 13:45 62 15 123/62 100 Nasal Cannula 3.0 12/07/17 13:30 65 18 129/66 100 Nasal Cannula 3.0 12/07/17 13:15 62 16 115/62 100 Nasal Cannula 3.0 12/07/17 13:00 60 15 121/55 100 Nasal Cannula 3.0 12/07/17 12:45 61 14 117/54 100 Nasal Cannula 3.0 12/07/17 12:30 62 16 118/56 100 Nasal Cannula 3.0 12/07/17 12:15 61 15 119/56 100 Nasal Cannula 3.0 12/07/17 12:00 63 16 128/56 100 Nasal Cannula 3.0 12/07/17 11:45 63 14 124/63 100 Nasal Cannula 3.0 12/07/17 11:30 62 15 114/61 100 Nasal Cannula 3.0 12/07/17 11:15 61 17 123/55 100 Nasal Cannula 3.0 12/07/17 11:00 60 16 129/60 100 Nasal Cannula 3.0 12/07/17 10:45 60 15 127/63 100 Nasal Cannula 3.0 12/07/17 10:30 60 18 124/57 100 Nasal Cannula 3.0 12/07/17 10:15 65 15 123/67 100 Nasal Cannula 3.0 12/07/17 10:00 65 13 135/62 100 Nasal Cannula 3.0 12/07/17 09:45 64 15 144/70 100 Nasal Cannula 3.0 12/07/17 09:30 75 18 125/69 100 Nasal Cannula 3.0 12/07/17 09:20 66 15 145/72 100 Nasal Cannula 3.0 12/07/17 09:10 65 13 134/65 100 Nasal Cannula 3.0 12/07/17 09:05 71 14 131/62 100 Nasal Cannula 3.0 12/07/17 09:00 67 15 135/63 100 Simple Mask 6.0 12/07/17 08:54 98.0 63 13 131/62 100 Simple Mask 6.0 98.0 Intake and Output 12/07/17 12/08/17 19:00 07:00 Intake Total 770 ml 50 ml Output Total 0 ml Balance 770 ml 50 ml Intake Oral 120 ml 50 ml IV Total 650 ml Output Estimated Blood Loss 0 ml Laboratory Tests 12/07/17 09:35: Sodium Level 143, Potassium Level 4.6, Chloride Level 105, Carbon Dioxide Level 27, Anion Gap 11, Blood Urea Nitrogen 31H, Creatinine 6.5H, Estimat Glomerular Filtration Rate , Glucose Level 103, Calcium Level 9.4, Magnesium Level 1.9, Total Bilirubin 0.5, Aspartate Amino Transf (AST/SGOT) 24, Alanine Aminotransferase (ALT/SGPT) 19, Alkaline Phosphatase 103, Creatine Kinase MB 1.3 , Troponin I 0.148H, Total Protein 7.5, Albumin 3.3L, Globulin 4.2, Albumin/ Globulin Ratio 0.8L 12/07/17 17:30: Creatine Kinase MB 0.9, Troponin I 0.130H 12/08/17 03:15: Sodium Level 140, Potassium Level 4.5, Chloride Level 104, Carbon Dioxide Level 27, Anion Gap 9, Blood Urea Nitrogen 50H, Creatinine 8.0H, Estimat Glomerular Filtration Rate , Glucose Level 104, Calcium Level 8.7, Magnesium Level 2.2, Total Bilirubin 0.4, Aspartate Amino Transf (AST/SGOT) 24, Alanine Aminotransferase (ALT/SGPT) 15, Alkaline Phosphatase 89, Creatine Kinase MB 1.0 , Troponin I 0.142H, Total Protein 6.6, Albumin 2.8L, Globulin 3.8, Albumin/ Globulin Ratio 0.7L, White Blood Count 5.1, Red Blood Count 3.87L, Hemoglobin 12.5, Hematocrit 38.1, Mean Corpuscular Volume 98, Mean Corpuscular Hemoglobin 32.3H, Mean Corpuscular Hemoglobin Concent 32.9, Red Cell Distribution Width 12.4, Platelet Count 211, Mean Platelet Volume 7.0, Neutrophils (%) (Auto) 50.2 , Lymphocytes (%) (Auto) 35.5, Monocytes (%) (Auto) 10.4H, Eosinophils (%) (Auto ) 3.0, Basophils (%) (Auto) 1.0, Hemoglobin A1c 6.1H, Phosphorus Level 4.5, Pro- B-Type Natriuretic Peptide 6693H, Triglycerides Level 58, Cholesterol Level 182 , LDL Cholesterol 91, HDL Cholesterol 84H, Cholesterol/HDL Ratio 2.2L Height (Feet): 5 Height (Inches): 4.00 Weight (Pounds): 156 General Appearance: no apparent distress, alert EENT: normal ENT inspection, TMs normal Neck: normal alignment, supple Cardiovascular: normal rate, regular rhythm Respiratory/Chest: lungs clear, normal breath sounds Abdomen: non tender, soft Edema: no edema noted Arm (L), no edema noted Arm (R), no edema noted Leg (L), no edema noted Leg (R), no edema noted Pedal (L), no edema noted Pedal (R), no edema noted Generalized Aristeo Echavarria M.D. December 08, 2017 08:35
[2017-12-08] MEDS ORDERED: Doxazosin 4mg tab ORAL SCH (09:00)
[2017-12-08] MEDS ORDERED: Losartan 25mg tab ORAL SCH (09:00)
[2017-12-08] MEDS ORDERED: Nephrovite tab (Rena-Vite) ORAL SCH (09:00)
[2017-12-08] MEDS ORDERED: Aspirin EC 81mg tab ORAL SCH (09:00)
[2017-12-08] MEDS: Metoprolol 25mg tab ORAL SCH (09:15)
[2017-12-08] MEDS: Heparin 5000 units/ml inj SUBQ SCH (09:17)
--- NOTE | 2017-12-08 11:07 | 48 Hour Post Anesthesia Eval ---
Post Anesthesia Evaluation Procedure: left eye vitrectomy; removal of fragments Date of Evaluation: December 08, 2017 Time of Evaluation: 11:06 Blood Pressure Systolic: 134 0: 72 Pulse Rate: 74 Respiratory Rate: 20 Temperature (Fahrenheit): 97.6 O2 Sat by Pulse Oximetry: 98 Airway: patent Nausea: No Vomiting: No Pain Intensity: 2 Hydration Status: adequate Cardiopulmonary Status: stable Mental Status/LOC: patient returned to baseline Follow-up Care/Observations: n/a Post-Anesthesia Complications: none Follow-up care needed: N/A Joseph Calabrese MD December 08, 2017 11:07
[2017-12-08 12:00] VITALS: BP 106/58
[2017-12-08 16:33] VITALS: BP 110/60
--- NOTE | 2017-12-08 16:41 | Cardiac Electrophysiology PN ---
Assessment/Plan Assessment/Plan 1. Nonsustained ventricular tachycardia and elevated troponin at 0.148.Troponin levels are flat due to renal failure. The patient does not have any chest pain or shortness of breath . Echocardiogram showed Nl fx 2. Status post [employer] pacemaker implantation four months ago at [facility] in her abdomen with lack of access in subclavian area. Interrogated and showed Nl Fx . Ther was no evidence of ventricular tachycardia 3. Status post left eye surgery. 4. Diabetes. 5. End-stage renal disease, on hemodialysis. Subjective Subjective No chest pain or SOB. Pacer interrogated and showed Nl Fx Objective Last 24 Hour Vital Signs Date Time Temp Pulse Resp B/P (MAP) Pulse Ox O2 Delivery O2 Flow Rate FiO2 12/08/17 13:00 60 106/58 12/08/17 12:00 98.2 63 19 106/58 99 Room Air 98.2 12/08/17 12:00 60 12/08/17 11:07 207.7 74 20 98 12/08/17 09:15 110/65 12/08/17 09:15 68 110/62 12/08/17 09:00 110/62 12/08/17 08:00 98.3 61 19 110/62 99 Room Air 98.3 12/08/17 08:00 61 12/08/17 04:00 97.7 62 18 104/66 99 Room Air 97.7 12/08/17 04:00 60 12/08/17 00:00 97.8 62 20 116/58 99 Room Air 97.8 12/07/17 23:58 60 12/07/17 21:49 75 121/61 12/07/17 20:00 97.7 58 20 121/61 99 Room Air 97.7 12/07/17 19:23 68 12/07/17 16:33 78 Intake and Output 12/07/17 12/08/17 19:00 07:00 Intake Total 770 ml 50 ml Output Total 0 ml Balance 770 ml 50 ml Intake Oral 120 ml 50 ml IV Total 650 ml Output Estimated Blood Loss 0 ml Laboratory Tests Test 12/07/17 17:30 12/08/17 03:15 Creatine Kinase MB 0.9 NG/ML (0.0-3.6) 1.0 NG/ML (0.0-3.6) Troponin I 0.130 ng/mL (0.000-0.056) 0.142 ng/mL (0.000-0.056) White Blood Count 5.1 K/UL (4.8-10.8) Red Blood Count 3.87 M/UL (4.20-5.40) L Hemoglobin 12.5 G/DL (12.0-16.0) Hematocrit 38.1 % (37.0-47.0) Mean Corpuscular Volume 98 FL (80-99) Mean Corpuscular Hemoglobin 32.3 PG (27.0-31.0) H Mean Corpuscular Hemoglobin Concent 32.9 G/DL (32.0-36.0) Red Cell Distribution Width 12.4 % (11.6-14.8) Platelet Count 211 K/UL (150-450) Mean Platelet Volume 7.0 FL (6.5-10.1) Neutrophils (%) (Auto) 50.2 % (45.0-75.0) Lymphocytes (%) (Auto) 35.5 % (20.0-45.0) Monocytes (%) (Auto) 10.4 % (1.0-10.0) H Eosinophils (%) (Auto) 3.0 % (0.0-3.0) Basophils (%) (Auto) 1.0 % (0.0-2.0) Sodium Level 140 MMOL/L (136-145) Potassium Level 4.5 MMOL/L (3.5-5.1) Chloride Level 104 MMOL/L (98-107) Carbon Dioxide Level 27 MMOL/L (21-32) Anion Gap 9 mmol/L (5-15) Blood Urea Nitrogen 50 mg/dL (7-18) H Creatinine 8.0 MG/DL (0.55-1.30) H Estimat Glomerular Filtration Rate mL/min (>60) Glucose Level 104 MG/DL (74-106) Hemoglobin A1c 6.1 % (4.3-6.0) H Calcium Level 8.7 MG/DL (8.5-10.1) Phosphorus Level 4.5 MG/DL (2.5-4.9) Magnesium Level 2.2 MG/DL (1.8-2.4) Total Bilirubin 0.4 MG/DL (0.2-1.0) Aspartate Amino Transf (AST/SGOT) 24 U/L (15-37) Alanine Aminotransferase (ALT/SGPT) 15 U/L (12-78) Alkaline Phosphatase 89 U/L (46-116) Pro-B-Type Natriuretic Peptide 6693 pg/mL (0-125) H Total Protein 6.6 G/DL (6.4-8.2) Albumin 2.8 G/DL (3.4-5.0) L Globulin 3.8 g/dL Albumin/Globulin Ratio 0.7 (1.0-2.7) L Triglycerides Level 58 MG/DL (30-150) Cholesterol Level 182 MG/DL (< 200) LDL Cholesterol 91 mg/dL (<100) HDL Cholesterol 84 MG/DL (40-60) H Cholesterol/HDL Ratio 2.2 (3.3-4.4) L Objective HEAD, EYES, AND NECK: No JVD. She is status post left eye surgery. LUNGS: Clear. CARDIOVASCULAR: Regular S1 and S2 with no gallop. ABDOMEN: Soft. She has a pacemaker right next to her bellybutton. EXTREMITIES: There is no pitting edema. She has an amputation of right index finger. Shree Castro MD December 08, 2017 16:41
--- NOTE | 2017-12-09 00:17 | Discharge Summary ---
Discharge Summary Hospital Course Date of Admission December 07, 2017 at 14:13 Date of Discharge December 08, 2017 at 17:47 Admitting Diagnosis HPI Kamila Xiao is a 71 year old female who was admitted on December 07, 2017 at 14:13 for Pars Plana Vitrectomy And Removal Of Ac Patient is a 71 y/o female with a PMH of HTN, ESRD on HD (MWF), and abdominal pacer ([employer] Magdy's pacemaker) who presented for elective left eye surgery for retained lens. Patient states that she underwent cataract surgery on November 29, 2017, which was c/b loose zonules. This resulted in retention of lens fragments on that side. She was therefore admitted for vitrectomy with removal of lens fragments as a primary procedure with potentially delayed insertion of a lens implant. While in OR, patient had several beats of supraventricular tachycardia , but case was finished. Patient states that the abdominal pacer was placed due to bradycardia and was in abdomen because she had a stent placed in the LUE due to arterial occlusion. Denies chest pain, sob, n/v, abdominal pain, f/c, d/c. PMH: HTN, ESRD on HD, abdominal pacemaker PSxH: right third phalanx amputation, s/p right AVF, s/p left AVF now closed due to previous infection, s/p left RUE angioplasty with stent due to arterial occlusion Social Hx: Denies tobacco/alcohol/illicit drug use Consultations Opthamologist, Dr. Felipe Analytical Scientist, Dr. Chun Trip Motor Operator, Dr. Cantu Procedures s/p victrectomy pacemaker interrogation Hospital Course Patient was admitted after undergoing a vitrectomy to the left eye for retained lens on 12/07/[address] Felipe. Intraoperatively, patient had episodes of VT/ SVTs and cardiology was consulted after the procedure was done. Patient had elevated but flat troponins likely 2/2 ESRD. Patient also was noted to have an abdominal pacemaker due to the subclavian not being accessible from a prior stent placement. This was interrogated and no ventricular tachycardia was noted. ECHO showed normal function. Nephrology was also consulted given ESRD on HD but given patient recently had HD on 12/06, patient refused HD in hospital unless it was medically necessary. At this time, it was not deemed necessary per nephrology for patient to undergo HD and it was deferred. Patient was therefore hemodynamically stable prior to discharge. Patient was given instructions for eye care and f/u with Dr. Felipe within 1-2 weeks. Discharge Condition Upon Discharge: stable Discharge Disposition Patient was discharged to Home (01) Discharge Diagnoses: (1) Foreign body, intraocular, left eye, retained or old (2) Hemodialysis patient (3) Elevated troponin (4) HTN (hypertension) (5) Supraventricular tachycardia (6) ESRD (end stage renal disease) (7) H/O vitrectomy Angelika Miller NP Dec 09, 2017 00:17
== END 2017-12-08 17:47 | disposition home or self-care (01) | DRG 116 ==
LOC: SUR 05:46 → 2W 14:13
PROC: 08QF3ZZ Repair Left Retina, Percutaneous Approach (ICD-10-PCS; principal; 2017-12-07 07:00)
PROC: 08B53ZZ Excision of Left Vitreous, Percutaneous Approach (ICD-10-PCS; principal; 2017-12-07 07:00)
PROC: 08DK3ZZ Extraction of Left Lens, Percutaneous Approach (ICD-10-PCS; principal; 2017-12-07 07:00)
DX: H59.022 Cataract (lens) fragments in eye following cataract surgery, left eye (principal); N18.6 End stage renal disease; I12.0 Hypertensive chronic kidney disease with stage 5 chronic kidney disease or end stage renal disease; I47.1 Supraventricular tachycardia; I45.2 Bifascicular block; N25.81 Secondary hyperparathyroidism of renal origin; Y83.8 Other surgical procedures as the cause of abnormal reaction of the patient, or of later complication, without mention of misadventure at the time of the procedure; H43.12 Vitreous hemorrhage, left eye; E11.3592 Type 2 diabetes mellitus with proliferative diabetic retinopathy without macular edema, left eye; H40.9 Unspecified glaucoma; M19.90 Unspecified osteoarthritis, unspecified site; E11.22 Type 2 diabetes mellitus with diabetic chronic kidney disease; Z99.2 Dependence on renal dialysis; R74.8 Abnormal levels of other serum enzymes; Z95.0 Presence of cardiac pacemaker; D63.1 Anemia in chronic kidney disease; Z89.421 Acquired absence of other right toe(s)
CPT/HCPCS: 36415; 71045; 74018; 80048; 80053; 80061; 82553; 82962; 83036; 83735; 83880; 84100; 84484; 85025; 93005; 93306; 94003; 94150; J1815; J2405; J3300; J9035